=== PATIENT | female | born 1970 | race Caucasian/White ===

== ENCOUNTER 2024-06-03 13:54 | Outpatient (CLI) | payer BC ==
[~2024-06-03 13:54] MED LIST: CLARITIN 1010 MG/TAB PO; COMPAZINE 110 MG/TAB PO; DECADRON 4MG TAB4 MG PO; PRILOSEC 20MG20 MG PO; ZOFRAN 4MG T4 MG/TAB PO
[2024-06-03] MEDS ORDERED: NS 1,000 ML IV SCH (14:15)
[2024-06-03 14:37] VITALS: BP 133/78; PULSE 72; TEMP 97.8
== END 2024-06-03 15:44 ==
LOC: EUO 13:54
DX: C50.812 Malignant neoplasm of overlapping sites of left female breast (principal); R76.8 Other specified abnormal immunological findings in serum; Z17.0 Estrogen receptor positive status [ER+]
CPT/HCPCS: J7030